=== PATIENT | female | born 1980 | race Caucasian/White ===

== ENCOUNTER 2019-05-17 12:14 | Observation (INO) ==
[2019-05-17] MEDS ORDERED: ONDANSETRON HCL/PF 2 MG/ML VIAL IV ONE (12:46)
[2019-05-17] MEDS ORDERED: KETOROLAC TROMETHAMINE 30 MG/ML VIAL IV ONE (12:49)
[2019-05-17 12:50] LABS: Hematocrit 38.8 % (37.0-47.0); Hemoglobin 12.8 gm/dL (12.5-16.0); Mean Cell Volume 91.9 fl (78-100); Mean Corpuscular Hemoglobin 30.3 pg (27-31); Mean Platelet Volume 9.6 fl (8-12.5); Neutrophil # 6.2 K/mm3 (1.3-6.0); Neutrophil % 73.2 % (42-75.0); Platelet Count 262 K/mm3 (150-450); Red Blood Count 4.22 M/mm3 (4.2-5.4); Red Cell Distribution Width 12.1 % (11.5-14.0); White Blood Count 8.4 K/mm3 (4.0-10.5)
--- NOTE | 2019-05-17 12:50 | ERNOTE ---
ER Female HPI Date of Service: 05/17/19 Stated Complaint: left side flank pain/hematuria Presenting Symptoms: dysuria Time Seen by Provider: 05/17/19 12:47 Source: patient Exam Limitations: no limitations Immunizations: IMMUNIZATION HX Immunizations Up to Date Yes Allergies/Adverse Reactions: Allergies No Known Allergies Allergy (Verified 05/17/19 12:31) Home Medications: HOME MEDICATIONS acetaminophen 325 mg capsule 325 mg PO Q4H PRN 09/02/18 [Last Taken Unknown] Pain Score #1 Pain Score: 10 - History of Present Illness Narrative: The patient is a 39 year old female who presents for left flank pain which has been present for 2 days. There are associated symptoms of nausea and diaphoresis. The patient reports left flank pain, /10. There are no alleviating factors. There are no aggravating factors. Previous treatments have included: Tylenol without improvement. The past medical history includes: hypothyroid. The social history is negative. The patient has had no ill cont acts. Patient reports she was having left low back pain for the past couple days that she attributed to menstrual cramps but then had abrupt pain that radiation around to left flank which caused nausea and diaphoresis. Review of Systems - Review of Systems Constitutional: Present: chills, diaphoresis, fatigue, decreased activity level. Absent: fever ENT: Present: no symptoms reported. Absent: ear pain, nasal drainage, sore throat Respiratory: Present: no symptoms reported. Absent: shortness of breath, cough Cardiology: Present: no symptoms reported. Absent: chest pain Gastrointestinal/Abdominal: Present: nausea, abdominal pain. Absent: vomiting, diarrhea Genitourinary: Present: frequency, dysuria, hematuria, decreased urinary output Musculoskeletal: Present: back pain Skin: Present: no symptoms reported. Absent: rash All Other Systems: All systems neg except as marked Medical History (Updated 05/17/19 @ 15:24 by JUSTIN Victoria) Elbow pain Onset Date: ~05/31/14 left with radiculapathy Foot pain Onset Date: ~11/15/14 Hypothyroidism Onset Date: Unknown Refused influenza vaccine Onset Date: ~08/2018 Surgical History: Surgical History (Updated 10/29/18 @ 15:07 by Merlyn Morales MA) Hx of cholecystectomy Onset Date: ~1996 S/P cubital tunnel release Onset Date: Unknown dr. Barnes/ [facility] S/P tubal ligation Onset Date: Unknown Family History: Family History (Updated 05/17/19 @ 17:17 by Rona Darby RN) Father Diabetes Mother Diabetes Hypertension Grandmother Heart disease maternal Social History: Preferred Language Citizen Of [place] Smoking Status Never smoker Alcohol Use occasionally Drug Use none (Last Updated 10/29/18 @ 15:11 by Merlyn Morales MA) No Social History Section defined Physical Exam - Physical Exam General Appearance: Present: wd/wn, alert, severe distress Head Exam: Present: normal inspection Eye Exam: Normal inspection: bilateral Neck: Present: normal inspection Respiratory: Present: no respiratory distress, normal breath sounds, no accessory muscle use, lungs clear Cardiovascular/Chest: Present: regular rate, rhythm, no murmur Gastrointestinal/Abdominal: Present: normal bowel sounds, nondistended, soft, no organomegaly, tenderness - LUQ and LLQ , guarding - LLQ. Absent: mass Back Exam: Present: CVA tenderness (L) Neurological Exam: Present: alert, oriented, normal mood/affect Skin Exam: Present: normal color, warm/dry Progress - Date and Time Seen: Date and Time: 05/17/19 15:32 Results of testing reviewed with patient and at bedside. Will admit for planned surgery with tomorrow as well as outpatient testing and follow up. - Results and Orders Patient's Lab Results:: I have reviewed the patient's lab results. - Vital Signs Patient's Vital Signs:: I have reviewed the patient's vital signs. Vital Signs: Vital Signs 05/17/19 12:29 Temperature 36.8 C Pulse Rate 63 Respiratory Rate 14 Blood Pressure 156/92 H O2 Sat by Pulse Oximetry 100 - CT/Ultrasound CT/Ultrasound Narrative: IMPRESSION: 1. SUBOPTIMAL UNENHANCED STUDY. 2. LEFT SIDED PELVOCALIECTASIS AND DILATATION THE PROXIMAL LEFT URETER DOWN TO A 6 MILLIMETER CALCULUS WITHIN THE PROXIMAL LEFT URETER. 3. 6.1 SOLID APPEARING MASS IN THE LEFT ADNEXA; PEDUNCULATED FIBROID VERSUS OVARIAN NEOPLASM. FOLLOW-UP MRI OF THE PELVIS IS RECOMMENDED. Electronically signed by Anish Padilla M.D - Progress/Reassessment Chief Complaint: Genitourinary Problem Progress:: Improved Progress Note-Subjective: 05/17/19 15:29 Patient pain improved but remains recurrent and difficult to manage. Discussed case with and will admit for pain control with planned surgery tomorrow. Discussed case with and will admit. Ovarian mass discussed with , requesting add of CA125 test. Also discussed MRI of pelvis which will be ordered for outpatient and will follow up. Departure Clinical Impression: Kidney stone on left side, Ovarian mass, left, Intractable pain - Departure Disposition: Still a patient Condition: Fair
[2019-05-17 13:02] LABS: Albumin * 3.7 gm/dl (3.4-5.0); Anion Gap 12.1 mmol/L (6.8-13.8); BUN/Creatinine Ratio 14.4 (9.0-21.6); Bilirubin, Total 0.4 mg/dL (0.0-1.1); Ca. Corrected For Albumin 8.8 mg/dL (8.4-10.2); Calcium * 8.9 mg/dL (7.9-10.9); Carbon Dioxide 29.8 mmol/L (24-32.6); Potassium 3.9 mmol/L (3.4-4.6); Total Protein 7.5 gm/dL (6.2-8.2)
[2019-05-17] MEDS ORDERED: MORPHINE SULFATE 4 MG/ML SYRG IV ONE ×2 (13:33→14:35)
[2019-05-17 14:25] LABS: Urine Appearance Slightly Cloudy (CLEAR); Urine Color Yellow
[2019-05-17 14:30] LABS: Urine Bilirubin Negative (NEGATIVE)
[2019-05-17 14:31] LABS: Urine Blood 250 /ul (NEGATIVE); Urine Ketone 5 mg/dL (NEGATIVE); Urine Nitrite Negative (NEGATIVE); Urine Protein Negative (NEGATIVE); Urine Specific Gravity 1.025 SP.GR. (1.005-1.010); Urine Urobilinogen Normal (NORMAL); Urine WBC 0-5 /hpf (0-5)
[2019-05-17 14:33] LABS: Urine RBC >50 /hpf (0-5)
[2019-05-17 14:34] LABS: Urine Bacteria 1+
[2019-05-17] MEDS ORDERED: ONDANSETRON HCL/PF 2 MG/ML VIAL IV PRN (15:40)
[2019-05-17] MEDS: NORMAL SALINE 1,000 ML IV PRN (16:36)
[2019-05-17] MEDS ORDERED: ACETAMINOPHEN 325 MG TABLET PO PRN (17:04)
--- NOTE | 2019-05-17 17:29 | HP ---
Chief Complaint - Chief Complaint Date of Service: 05/17/19 Time of Service: 17:18 Chief Complaint: I have left flank pain nausea and vomiting History of Present Illness: 39-year-old female with past medical history of morbid obesity, hypothyroidism, cholecystectomy, was evaluated in our ER for worsening left flank pain accompanied by nausea and vomiting for the past [address] demonstrates a left ureteral stone but no hydronephrosis. It also revealed a left adnexal mass where it was difficult to distinguish whether it was a fibroid or an ovarian tumor by the radiologist. Patient was informed of the incidental finding and [facility] [employer] Dr. Antonio was notified and she recommended ordering Ca1 25 and a pelvic MRI on outpatient basis. Dr. Reyes the urologist was also consulted and he plans on evaluating the patient in the morning and taking her to the OR to address the ureteral stone. Medical History (Updated 05/17/19 @ 15:24 by JUSTIN Victoria) Elbow pain Onset Date: ~05/31/14 left with radiculapathy Foot pain Onset Date: ~11/15/14 Hypothyroidism Onset Date: Unknown Refused influenza vaccine Onset Date: ~08/2018 Surgical History: Surgical History (Updated 10/29/18 @ 15:07 by Merlyn Morales MA) Hx of cholecystectomy Onset Date: ~1996 S/P cubital tunnel release Onset Date: Unknown dr. 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 Smoking Status Never smoker Have you smoked in the past 12 No months Do you dip or chew tobacco No Alcohol Use occasionally Drug Use none (Last Updated 10/29/18 @ 15:11 by Merlyn Morales MA) No Social History Section defined Peds Patient Hx - Developmental: No Pertinent Hx Peds Patient Hx - Medical: No Pertinent Hx Peds Patient Hx - Cardiac/Respiratory: No Pertinent Hx Peds Patient Hx - Surgical: No Surgical History Patient History - Cancer: No Hx of Cancer Review Of Systems (GEN) - Review of Systems Generalized/Overall Review: Present: No Symptoms Reported EENTM: Present: No Symptoms Reported Respiratory: Present: No Symptoms Reported Cardiac: Present: No Symptoms Reported Abdominal: Present: Nausea, Vomiting, Abdominal Pain - Left flank and left lower quadrant pain Genitourinary: Present: No Symptoms Reported Musculoskeletal: Present: No Symptoms Reported Neurological: Present: No Symptoms Reported Skin: Present: No Symptoms Reported Endocrine: Present: No Symptoms Reported Immunizations: IMMUNIZATION HX Immunizations Up to Date Yes Allergies/Adverse Reactions: Allergies Allergy/AdvReac Type Severity Reaction Status Date / Time No Known Allergies Allergy Verified 05/17/19 12:31 Home Medications: HOME MEDICATIONS acetaminophen 325 mg capsule 325 mg PO Q4H PRN 09/02/18 [Last Taken Unknown] Exam - Exam Vital Signs: Vital Signs - Last Taken Temp 36.8 C 05/17/19 15:39 Pulse 72 05/17/19 15:39 Resp 16 05/17/19 15:39 BP 123/55 05/17/19 15:39 Pulse Ox 97 05/17/19 15:39 Constitutional: Present: Alert, Oriented x3, Cooperative, Well developed, Well nourished, No distress, Morbidly obese ENT Exam: Present: normal ENT inspection, hearing grossly normal, pharynx normal, TMs normal Eye Exam: bilateral eye: normal inspection, PERRL, EOMI Neck: Present: non-tender, full range of motion, supple, normal inspection, trachea midline Back Exam: Present: normal inspection, CVA tenderness (L) Breasts: Present: Exam deferred Respiratory: Present: chest non-tender, lungs clear, normal breath sounds, no respiratory distress, no accessory muscle use Cardiovascular/Chest: Present: normal peripheral pulses, regular rate, rhythm, no chest tenderness, no edema, no gallop, no JVD, no murmur Peripheral Pulses: carotid (R): 3+, carotid (L): 3+, femoral (R): 3+, femoral (L): 3+, dorsalis-pedis (R): 3+, dorsalis-pedis (L): 3+ Abdomen: Present: Normal bowel sounds, soft, nondistended, no rebound tenderness, no hepatospenomegaly, obese, tender - Left lower quadrant tenderness, CVA tenderness /Rectal: Present: Exam deferred Extremity: Present: normal range of motion, non-tender, normal inspection, no pedal edema, no calf tenderness Skin Exam: Present: normal color, warm/dry, no cyanosis Lymphatic: Present: no adenopathy Neurologic: 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: 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, normal cerebellar test, no motor/sensory deficits, alert, normal mood/affect, oriented x 3 Appearance: Present: appropriate appearance, appropriate insight, neat, no memory impairment Eye contact: Present: cooperative, good eye contact, normal speech Thoughts: Present: normal thought pattern, no apparent hallucination Diagnostic Studies: Abnormal Lab Results 05/17/19 05/17/19 05/17/19 Range/Units 12:43 12:43 14:22 Lymphocytes % 19.1 L (20-51) % Neutrophils # 6.2 H (1.3-6.0) K/mm3 Random Glucose 115 H (70-110) mg/dL Urine Blood 250 H (NEGATIVE) /ul Urine RBC >50 H (0-5) /hpf Urine Bacteria 1+ H (NONE) Laboratory Results WBC 8.4 K/mm3 (4.0-10.5) 05/17/19 12:43 RBC 4.22 M/mm3 (4.2-5.4) 05/17/19 12:43 Hgb 12.8 gm/dL (12.5-16.0) 05/17/19 12:43 Hct 38.8 % (37.0-47.0) 05/17/19 12:43 MCV 91.9 fl (78-100) 05/17/19 12:43 MCH 30.3 pg (27-31) 05/17/19 12:43 MCHC 33.0 g/dl (32-36) 05/17/19 12:43 RDW 12.1 % (11.5-14.0) 05/17/19 12:43 Plt Count 262 K/mm3 (150-450) 05/17/19 12:43 MPV 9.6 fl (8-12.5) 05/17/19 12:43 Immature Gran % (Auto) 0.40 % (0.001-0.429) 05/17/19 12:43 Immature Gran # (Auto) 0.03 K/mm3 (0.000-0.0310) 05/17/19 12:43 73.2 % (42-75.0) 05/17/19 12:43 19.1 % (20-51) L 05/17/19 12:43 6.3 % (0.0-9) 05/17/19 12:43 0.6 % (0.0-3.0) 05/17/19 12:43 0.4 % (0.0-1.0) 05/17/19 12:43 Nucleated RBC % 0.0 k/mm3 (0-1) 05/17/19 12:43 6.2 K/mm3 (1.3-6.0) H 05/17/19 12:43 1.60 k/mm3 (1.5-3.5) 05/17/19 12:43 0.5 k/mm3 (0.0-1.0) 05/17/19 12:43 0.1 k/mm3 (0.0-0.7) 05/17/19 12:43 Absolute Basophils 0.0 k/mm3 (0.0-0.1) 05/17/19 12:43 Sodium 141 mmol/L (132-142) 05/17/19 12:43 141 mmol/L (130-142) 05/17/19 12:43 Potassium 3.9 mmol/L (3.4-4.6) D 05/17/19 12:43 Chloride 103 mmol/L (97-106) 05/17/19 12:43 Carbon Dioxide 29.8 mmol/L (24-32.6) 05/17/19 12:43 12.1 mmol/L (6.8-13.8) 05/17/19 12:43 BUN 15 mg/dL (3-23) 05/17/19 12:43 1.04 mg/dL (0.4-1.4) 05/17/19 12:43 Est GFR (Non-Af Amer) 62 mL/min (60-130) 05/17/19 12:43 14.4 (9.0-21.6) 05/17/19 12:43 115 mg/dL (70-110) H 05/17/19 12:43 Calcium 8.9 mg/dL (7.9-10.9) 05/17/19 12:43 Calcium Adj for Albumin 8.8 mg/dL (8.4-10.2) 05/17/19 12:43 0.4 mg/dL (0.0-1.1) 05/17/19 12:43 AST 15 U/L (0-48) 05/17/19 12:43 ALT 20 U/L (19-67) 05/17/19 12:43 77 U/L (50-170) 05/17/19 12:43 7.5 gm/dL (6.2-8.2) 05/17/19 12:43 3.7 gm/dl (3.4-5.0) 05/17/19 12:43 Yellow 05/17/19 14:22 Slightly cloudy (CLEAR) 05/17/19 14:22 7.0 pH (5.0-7.0) 05/17/19 14:22 Ur Specific [place] 1.025 SP.GR. (1.005-1.010) 05/17/19 14:22 Negative mg/dL (NEGATIVE) 05/17/19 14:22 Negative mg/dL (NEGATIVE) 05/17/19 14:22 5 mg/dL (NEGATIVE) 05/17/19 14:22 250 /ul (NEGATIVE) H 05/17/19 14:22 Negative (NEGATIVE) 05/17/19 14:22 Negative mg/dl (NEGATIVE) 05/17/19 14:22 Normal EU/dl (NORMAL) 05/17/19 14:22 Ur Leukocyte Esterase Negative /ul (NEGATIVE) 05/17/19 14:22 >50 /hpf (0-5) H 05/17/19 14:22 0-5 /hpf (0-5) 05/17/19 14:22 Ur Epithelial Cells 0-5 /hpf (0-5) 05/17/19 14:22 1+ (NONE) H 05/17/19 14:22 No culture indicated 05/17/19 14:22 Urine HCG, Qual Negative (NEGATIVE) 05/17/19 14:20 Assessment/Plan - Narrative Narrative: Patient was evaluated and medical chart was reviewed and decision to admit with diagnosis of left ureteral stone with nausea and vomiting was taken. Patient was administered antiemetics for her nausea and is scheduled to be evaluated and possibly surgically treated by Dr. Tracy in the morning. We will continue to monitor her closely and keep her comfortable with pain meds. - Assessment/Plan (1) Kidney stone on left side Problem: Acute (2) Ovarian mass, left Problem: Acute (3) Left ureteral stone Problem: Acute (4) Nausea & vomiting Problem: Acute
[2019-05-17] MEDS: TAMSULOSIN HCL 0.4 MG CAP.SR.24H PO SCH (18:06)
[2019-05-17] MEDS: FAMOTIDINE 20 MG in DEXTROSE 5 % IN WATER 100 ML IV SCH ×2 (18:26)
[2019-05-17] MEDS: MORPHINE SULFATE 4 MG/ML SYRG IV PRN (19:25)
[2019-05-17] MEDS: DOCUSATE SODIUM 100 MG CAPSULE PO SCH (20:56)
[2019-05-18] MEDS: MORPHINE SULFATE 4 MG/ML SYRG IV PRN ×3 (00:20→09:28)
[2019-05-18] MEDS: NORMAL SALINE 1,000 ML IV PRN ×2 (04:47→17:34)
[2019-05-18] MEDS: FAMOTIDINE 20 MG in DEXTROSE 5 % IN WATER 100 ML IV SCH ×4 (05:46→17:34)
[2019-05-18] MEDS: DOCUSATE SODIUM 100 MG CAPSULE PO SCH ×2 (08:16→20:17)
--- NOTE | 2019-05-18 09:55 | CONS ---
[facility] - General Date of Service: 05/18/19 Narrative: 39 yo female admitted last evening for a 6 mm left UPJ stone. No prior hx of stones. Started having hematuria and severe left flank pain with nausea yesterday and came to the ER. A stone protocol CT scan was obtained and reviewed report and images. She has a 6 mm left UPJ stone associated with moderate hydronephrosis. No other stones were seen. Her urine showed no sign of infection although she did have greater than 50 RBCs. She reports at times having some intermittency of her stream over the last 24 hours but no burning or fever. Overall healthy. Her pain is been difficult to control overnight. Comes and goes in waves. Social history: Lifetime non-smoker Family history: Denies family history of kidney stones Source: patient - History of Present Illness Severity: severe Modifying Factors - (Improves): Reports: medication Allergies/Adverse Reactions: Allergies No Known Allergies Allergy (Verified 05/17/19 12:31) Home Medications: Home Medications Medication Instructions Recorded Last Taken acetaminophen 325 mg capsule 325 mg PO Q4H PRN 09/02/18 Unknown Procedures Bilateral endoscopic ligation and division of fallopian tubes (08/01/05) Episiotomy (09/25/04) Injection of anesthetic into spinal canal for analgesia (09/25/04) Medications - Medications Current Medications: Current Medications Docusate Sodium (Colace) 100 mg PO BID DOTTIE Stop: 06/16/19 21:01 Last Admin: 05/18/19 08:16 Dose: 100 mg Documented by: Sodium Chloride (Sodium Chloride 0.9%) 1,000 mls @ 80 mls/hr IV .[id number] PRN PRN Reason: HYDRATION Stop: 06/16/19 15:41 Last Admin: 05/18/19 04:47 Dose: 80 mls/hr Documented by: Famotidine 20 mg/ Dextrose/ (Water) 102 mls @ 400 mls/hr IV Q12H DOTTIE Stop: 06/16/19 18:01 Last Infusion: 05/18/19 06:02 Dose: Infused Documented by: Morphine Sulfate (Morphine Sulfate) 4 mg IV Q4H PRN PRN Reason: Pain Stop: 06/16/19 15:46 Last Admin: 05/18/19 09:28 Dose: 4 mg Documented by: Tamsulosin HCl (Flomax) 0.4 mg PO DAILY@1800 DOTTIE Stop: 06/16/19 18:01 Last Admin: 05/17/19 18:06 Dose: 0.4 mg Documented by: Review of Systems - Review of Systems Generalized/Overall Review: Present: No Symptoms Reported EENTM: Present: No Symptoms Reported Respiratory: Present: No Symptoms Reported Cardiac: Present: No Symptoms Reported Abdominal: Present: Nausea Genitourinary: Present: Hematuria Musculoskeletal: Present: No Symptoms Reported Neurological: Present: No Symptoms Reported Skin: Present: No Symptoms Reported Endocrine: Present: No Symptoms Reported Physical Examination - Exam Vital Signs: Vital Signs - Last Taken Temp 98.2 F 05/18/19 08:11 Pulse 65 05/18/19 08:11 Resp 18 05/18/19 08:11 BP 110/53 05/18/19 08:11 Pulse Ox 99 05/18/19 08:11 O2 Oxygen Delivery Method Room Air Constitutional: Present: Alert, Oriented x3, Cooperative ENT Exam: Present: normal ENT inspection, hearing grossly normal Neck: Present: full range of motion Respiratory: Present: chest non-tender, lungs clear Cardiovascular/Chest: Present: normal peripheral pulses, regular rate, rhythm Abdomen: Present: soft, nontender /Rectal: Present: Exam deferred Extremity: Present: normal range of motion Skin Exam: Present: normal color, warm/dry Neurologic: Present: no motor/sensory deficits Appearance: Present: appropriate appearance Eye contact: Present: good eye contact Thoughts: Present: normal thought pattern - Results and Findings: Narrative: Patient has a 6 mm left ureteral stone with fairly severe pain. Stone is proximal. I discussed options which would include a trial of passage versus stone surgery. She wishes to proceed with surgery as the pain has been very difficult to control and quite frankly stone unlikely to pass quickly. She wishes to proceed. Recommend proceeding with cystoscopy with left retrograde pyelogram, ureteroscopy, possible laser and stenting. Risks include need for a stent which can cause discomfort, need for at least 2 procedures. Injury to the ureter and infection. Patient wishes to proceed. We will add on today for surgery Lab/Microbiology results last 24 hrs: Abnormal/Pending Laboratory Last 24 HRS 05/17/19 05/17/19 05/17/19 14:22 12:43 12:43 Lymphocytes % 19.1 L Neutrophils # 6.2 H Random Glucose 115 H Urine Blood 250 H Urine RBC >50 H Urine Bacteria 1+ H
--- NOTE | 2019-05-18 11:21 | ANES ---
Anesthesia Pre Procedure Eval Vitals/Labs: Last Vital Signs Temp 36.8 C 05/18/19 08:11 Pulse 65 05/18/19 08:11 Resp 18 05/18/19 08:11 BP 110/53 05/18/19 08:11 Pulse Ox 99 05/18/19 08:11 HOME MEDICATIONS acetaminophen 325 mg capsule 325 mg PO Q4H PRN 09/02/18 [Last Taken Unknown] Allergies/Adverse Reactions: Allergies Allergy/AdvReac Type Severity Reaction Status Date / Time No Known Allergies Allergy Verified 05/17/19 12:31 - Planned Procedure Planned Procedure: Pain management; Proximal stone Medication List Reviewed:: Yes Allergies Verified: Yes Medical History (Updated 05/17/19 @ 17:29 by Parul Angel MD) Elbow pain Onset Date: ~05/31/14 left with radiculapathy Foot pain Onset Date: ~11/15/14 Hypothyroidism Onset Date: Unknown Refused influenza vaccine Onset Date: ~08/2018 Surgical History (Updated 05/17/19 @ 17:29 by Parul Angel MD) Hx of cholecystectomy Onset Date: ~1996 S/P cubital tunnel release Onset Date: Unknown dr. Barnes/ [facility] [place] S/P tubal ligation Onset Date: Unknown Family History (Updated 05/17/19 @ 17:17 by Rona Darby RN) Father Diabetes Mother Diabetes Hypertension High cholesterol Grandmother Heart disease maternal Other Mother completed 12 to 16 years of education - Family Anesthesia History Family History:: no untoward family reactions to anesthesia - Airway/Neck/Teeth Teeth Condition: intact Neck Exam: full range of motion Mallampatti Score: 3 Thyromental (T-M) distance: > 6 cm Mandibulo Hyoid distance: > 3 cm - Respiratory Respiratory Physical: lungs clear Smoking Status: Never smoker Sleep Apnea currently treated: No Sleep Apnea by current assessment: No - Cardiovascular Tolerate Activity: Fair Heart Sounds: S1 & S2, Regular - Anesthesia Assessment and Plan ASA Class: PS, II Anesthesia Type Plan: General LMA Planned difficult intubation/equipment available: No
[2019-05-18] MEDS ORDERED: MORPHINE SULFATE 10 MG/ML SYRG IV PRN (11:32)
--- NOTE | 2019-05-18 11:42 | PN ---
Subjective - Date and Time Seen Date: 05/18/19 Time: 11:32 Subjective Narrative: I have pain in my right flank and feel terrible Objective Objective Narrative: 39-year-old female admitted for right ureteral stone was evaluated at bedside and was found to be afebrile and in no acute distress, patient continues to report inadequate control of her pain due to her ureteral stone. Therefore pain meds were increased. She is scheduled to be taken to the OR for surgical intervention by the urologist to address her stone. For now vitals remained stable and patient denies any other symptoms besides pain. We will follow-up with her after the procedure and any other recommendations from the urologist. - Review of Systems Generalized/Overall Review: Reports: No Symptoms Reported EENTM: Reports: No Symptoms Reported Respiratory: Reports: No Symptoms Reported Cardiac: Reports: No Symptoms Reported Abdominal: Reports: Abdominal Pain Genitourinary Symptoms: Reports: Other - Right costovertebral/flank pain Musculoskeletal Complaints: Reports: No Symptoms Reported Neurological: Reports: No Symptoms Reported Skin: Reports: No Symptoms Reported Endocrine: Reports: No Symptoms Reported - Vitals Vitals: Last Vital Signs Temp 36.8 C 05/18/19 08:11 Pulse 65 05/18/19 08:11 Resp 18 05/18/19 08:11 BP 110/53 05/18/19 08:11 Pulse Ox 99 05/18/19 08:11 - Abnormal Lab Findings Abnormal Lab Findings: Abnormal Lab Results 05/17/19 05/17/19 05/17/19 Range/Units 12:43 12:43 14:22 Lymphocytes % 19.1 L (20-51) % Neutrophils # 6.2 H (1.3-6.0) K/mm3 Random Glucose 115 H (70-110) mg/dL Urine Blood 250 H (NEGATIVE) /ul Urine RBC >50 H (0-5) /hpf Urine Bacteria 1+ H (NONE) - Exam Constitutional: Present: Alert, Oriented x3, Cooperative, Well developed, Well nourished, No distress, Other - Patient is in pain, Morbidly obese ENT Exam: Present: normal ENT inspection, hearing grossly normal, pharynx normal, TMs normal Neck: Present: non-tender, full range of motion, supple, normal inspection, trachea midline Breasts: Present: Exam deferred Respiratory: Present: chest non-tender, lungs clear, normal breath sounds, no respiratory distress, no accessory muscle use Cardiovascular/Chest: Present: normal peripheral pulses, regular rate, rhythm, no chest tenderness, no edema, no gallop, no JVD, no murmur, no rub Abdomen: Present: Normal bowel sounds, soft, nondistended, no hepatospenomegaly, no masses, obese, tender, CVA tenderness /Rectal: Present: Exam deferred Extremity: Present: normal range of motion, non-tender, normal inspection, no pedal edema, no calf tenderness, normal capillary refill Skin Exam: Present: normal color, warm/dry, no cyanosis Lymphatic: Present: no adenopathy 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 We will follow-up after the scheduled surgical intervention by Dr. Reyes the urologist to address her ureteral stone. - Problems/Diagnosis (1) Kidney stone on left side Problem: Acute (2) Ovarian mass, left Problem: Acute (3) Left ureteral stone Problem: Acute (4) Nausea & vomiting Problem: Acute
[2019-05-18] MEDS ORDERED: OXYBUTYNIN CHLORIDE 5 MG TABLET PO PRN (16:12)
--- NOTE | 2019-05-18 16:16 | OR ---
Operative Report - Dictated Report Narrative: Operation: cystoscopy with left retrograde pyelogram, ureteroscopy, laser lithotripsy, left ureteral stent Preop dx: left ureteral stone Postop dx: same Anesthesia: Gen Findings: 6 mm left ureteral stone Specimen: none Blood loss: minimal Drains: 6x24 double J stent Complications: none Description of the procedure: Patient was properly identified and consented. She is brought to the operating room and general anesthesia was induced. She was prepped and draped in dorsolithotomy position. A timeout was performed. A rigid cystoscope was passed into the bladder. Bladder was without stones or lesions. Single ureters identified bilaterally. Left retrograde pyelogram was performed and interpreted by Dr. Reyes. A 5 Maltese open-ended catheter was introduced into the left distal ureter and Isovue contrast was injected for a total of 10 mL. This showed a clear filling defect in the left proximal ureter consistent with a stone. Left renal pelvis was dilated. I then advanced a solo wire by the stone. A dual lumen catheter was used to get second wire access. Over the stiff wire a flexible ureteroscope was passed up. The stone floated back into the upper pole. Using a 200 micron Holmium laser fiber I performed lithotripsy and broke the stone into many fragments under 3 mm. No further stones were seen. Backed the ureteroscope out with no ureteral fragments. I backfed over my safety wire into the bladder. A 6x24 double J stent was advanced over the wire. Wire removed. Proximal end was at the UPJ. A coil seen in the bladder. Bladder drained. Brisk excretion of urine seen out of the stent. Elected to leaved in place. Patient awoken from Anesthesia and returned to recovery in good condition.
[2019-05-18] MEDS ORDERED: ceFAZolin SODIUM 2 GM in DEXTROSE 5 % IN WATER 50 ML IV PRN ×2 (16:44)
--- NOTE | 2019-05-18 17:00 | ANES ---
Post Anesthesia Discharge - Transfer of Care Transfer of Care handoff given to nurse: Yes - Discharge from PACU Discharge from PACU when meets criteria: Yes - Discharge to ASU Discharge to ASU-no complications/pt stable: Yes
--- NOTE | 2019-05-18 17:03 | ANES ---
Post Anesthesia Assessment - Vital Signs Vitals: Last Vital Signs Temp 36.3 C 05/18/19 16:55 Pulse 89 05/18/19 16:55 Resp 18 05/18/19 16:55 BP 131/71 05/18/19 16:55 Pulse Ox 93 05/18/19 16:55 Airway Patency: Normal - Mental Status Level Of Consciousness: Awake - Pain Level Pain Score: 0 - N/V Assessment Nausea/Vomiting Presence: None Dehydration:: No
[2019-05-18] MEDS ORDERED: RINGER'S SOLUTION,LACTATED 1,000 ML IV PRN (17:04)
[2019-05-18] MEDS ORDERED: ceFAZolin SODIUM 1 GM VIAL IV PRN (17:07)
[2019-05-18] MEDS: TAMSULOSIN HCL 0.4 MG CAP.SR.24H PO SCH (17:34)
[2019-05-18] MEDS: HYDROcodone/ACETAMINOPHEN 1 EACH TABLET PO PRN (18:54)
[2019-05-19] MEDS: FAMOTIDINE 20 MG in DEXTROSE 5 % IN WATER 100 ML IV SCH ×2 (05:41)
[2019-05-19] MEDS: DOCUSATE SODIUM 100 MG CAPSULE PO SCH (08:06)
[2019-05-19] MEDS: HYDROcodone/ACETAMINOPHEN 1 EACH TABLET PO PRN (09:21)
--- NOTE | 2019-05-19 09:31 | DS ---
(1) Kidney stone on left side Problem: Resolved (2) Ovarian mass, left Problem: Acute (3) Left ureteral stone Problem: Resolved (4) Nausea & vomiting Problem: Resolved Description of Stay: 39-year-old female admitted for left ureteral stone, nausea and vomiting, was evaluated at bedside and was found to be afebrile and in no acute distress. Patient underwent a successful and uneventful cystoscopy with left retrograde pyelogram with ureteroscopy and a placement of a stent as well as lithotripsy by the urologist. This morning she reports feeling much better but she still has residual discomfort in her left costovertebral angle. It was explained to her that it is normal for her to have residual discomfort and to take Tylenol for pain. She also complains of constipation, and was told that that is expected with the opioid she was treated with the treat pain. I will discharge patient with Colace and instructions to follow-up with her primary care doctor and to come for her outpatient pelvic MRI to look into her adnexal mass as ordered by the [facility]. The urologist instructed to discharge patient with oxybutynin, pain medications, and oral antibiotics for 3 days. Patient will be provided with a prescription of all 3 medications and instructions to follow-up with the urologist. Procedures Performed: see notes below List Procedures: Procedure: Cystoscopy with left retrograde pyelogram, ureteroscopy, laser lithotripsy, left ureteral stent placement. Results and Findings: Lab Pending Results 05/17/19 12:43: WBC 8.4, RBC 4.22, Hgb 12.8, Hct 38.8, MCV 91.9, MCH 30.3, MCHC 33.0, RDW 12.1, Plt Count 262, MPV 9.6, Immature Gran % (Auto) 0.40, Immature Gran # (Auto) 0.03, Neutrophils % 73.2, Lymphocytes % 19.1 L, Monocytes % 6.3, Eosinophils % 0.6, Basophils % 0.4, Nucleated RBC % 0.0, Neutrophils # 6.2 H, Lymphocytes # 1.60, Monocytes # 0.5, Eosinophils # 0.1, Absolute Basophils 0.0 05/17/19 12:43: Sodium 141, Plasma Sodium 141, Potassium 3.9 D, Chloride 103, Carbon Dioxide 29.8, Anion Gap 12.1, BUN 15, Creatinine 1.04, Est GFR (Non-Af Amer) 62, BUN/Creatinine Ratio 14.4, Random Glucose 115 H, Calcium 8.9, Calcium Adj for Albumin 8.8, Total Bilirubin 0.4, AST 15, ALT 20, Alkaline Phosphatase 77, Total Protein 7.5, Albumin 3.7 05/17/19 14:20: Urine HCG, Qual Negative 05/17/19 14:22: Urine Color Yellow, Urine Appearance Slightly cloudy, Urine pH 7.0, Ur Specific Rosenberg 1.025, Urine Protein Negative, Urine Glucose (UA) Negative, Urine Ketones 5, Urine Blood 250 H, Urine Nitrate Negative, Urine Bilirubin Negative, Urine Urobilinogen Normal, Ur Leukocyte Esterase Negative, Urine RBC >50 H, Urine WBC 0-5, Ur Epithelial Cells 0-5, Urine Bacteria 1+ H, Urine Culture Comments No culture indicated Discharge Location: Home Disposition: Home self-care Condition: Good Face to Face Encounter completed per [facility] Guidelines: No Discharge Activity: Activity as tolerated Discharge Diet: General/regular food Referrals: Becky Barnett MD [Primary Care Provider] - Additional Patient Instructions (free text): Pelvis MRI on Saturday05/22/19 at 8:00am. Check in at outpatient registration. 's office will call you with an appointment after your MRI results are back. Dr. Tone Reyes office or [facility] will call you with place and time for stent removal on Saturday. Prescriptions (Any new or edited meds): Ciprofloxacin HCl [Cipro] 250 mg PO BID 3 Days #6 tab Docusate Sodium [Colace] 100 mg PO DAILY #30 cap Oxybutynin Chloride [Ditropan] 5 mg PO TID 30 Days #90 tablet oxyCODONE HCL/ACETAMINOPHEN [Percocet 5-325 mg Tablet] 1 each PO Q6H PRN 10 Days #40 tablet PRN Reason: Pain Complete Home Medications List: Complete Home Medication List: acetaminophen 325 mg capsule 325 mg PO Q4H PRN 09/02/18 Ciprofloxacin HCl [Cipro] 250 mg PO BID 3 Days #6 tab 05/19/19 Docusate Sodium [Colace] 100 mg PO DAILY #30 cap 05/19/19 Oxybutynin Chloride [Ditropan] 5 mg PO TID 30 Days #90 tablet 05/19/19 oxyCODONE HCL/ACETAMINOPHEN [Percocet 5-325 mg Tablet] 1 each PO Q6H PRN 10 Days #40 tablet 05/19/19 Amb Orders for Discharge: MRI Pelvis W/WO * Time Frame: 2 Days, Location: Radiology
[2019-05-19 10:37] VITALS: BP 122/70
== END 2019-05-19 10:44 | disposition home or self-care (01) ==
LOC: MS 12:14 → ER 12:14 → MS 16:02
PROVIDERS: ADMIT Family Medicine; ATTEND Family Medicine
DX: N20.0 Calculus of kidney; N83.9 Noninflammatory disorder of ovary, fallopian tube and broad ligament, unspecified; R11.2 Nausea with vomiting, unspecified; R93.5 Abnormal findings on diagnostic imaging of other abdominal regions, including retroperitoneum
CPT/HCPCS: 36415; 74176; 74420; 80053; 81001; 84703; 85025; 86304; 86316; 99285; A9698; C1769; C2617; G0378; J2405; Q9967